=== PATIENT | male | born 1985 | race Caucasian/White ===

== ENCOUNTER 2021-08-11 15:26 | Inpatient (IN) | payer SELFPAY ==
[2021-08-11 15:41] VITALS: BP 123/74; PULSE 75; RESP 18; TEMP 36.9; O2SAT 96
--- NOTE | 2021-08-11 15:55 | ED.C_ITS ---
Documented by User: Jhonny Priest DO 08/19/21 17:43 HPI - Psych General: Chief Complaint: Psychiatric Symptoms Stated Complaint: SI X 6 DAYS Time Seen by Provider: 08/11/21 15:35 Source: patient Mode of arrival: ambulatory Limitations: no limitations History of Present Illness: 36-year-old male presents emergency room with chief complaint of suicidal ideation. Brought in by EMS patient states he has a new sound in the [place] he has not taken any of his medication for the last 2 weeks. He reports a history of bipolar disorder schizophrenia and multiple personality disorder evidently [place] from [place] states he had come here to join the fair. When staff went to change the patient out he became agitated and attempted to leave. Patient initially reported he had a noose hung out in the [place] he was going to kill himself he had not taken any of his medications for 2 weeks. When he realized that we were going to admit him to psychiatry rather than just replace his medications and let him go he stated he was no longer suicidal and wanted to leave immediately. MD complaint: suicidal ideation Onset (ago): unknown Duration: constant Relieving factors: none Exacerbating factors: none Context: not taking psychiatric medications Associated psychiatric symptoms: suicidal ideation, racing thoughts and delusions Treatments prior to arrival: none If self harm: admits thoughts of self harm and has plan Review of Systems Const: Denies: fever(s), chills, body aches, change in appetite, fatigue or malaise ENMT: Denies: throat pain, ear or mastoid pain, nasal discharge or nasal congestion Card: Denies: chest pain, edema, dyspnea on exertion or orthopnea Resp: Denies: dyspnea, productive cough or non-productive cough GI: Denies: abdominal pain, nausea, vomiting, hematemesis, coffee ground emesis, diarrhea, constipation, bloating, hematochezia or melena : Denies: flank pain, dysuria, urinary frequency or urinary urgency Skin/Breast: Denies: rash or pruritus PFS ED PFSH: Medical History Depression Schizophrenia Social History Smoking and tobacco status: current every day smoker Alcohol intake: unknown Physical Exam Const: GENERAL APPEARANCE: cooperative and comfortable ORIENTATION/CONSCIOUSNESS: Yes awake, Yes oriented to person, Yes oriented to place and Yes oriented to time HENMT: COMMON NORMALS: normocephalic, atraumatic and hearing grossly normal bilaterally HEAD & SCALP: normocephalic and atraumatic Neck/C-Spine: COMMON NORMALS: no JVD Resp: COMMON NORMALS: normal respiratory effort, No retractions, No use of accessory muscles and clear to auscultation bilaterally AUSCULTATION: clear to auscultation bilaterally Cardio: COMMON NORMALS: no JVD, regular rate, regular rhythm and No murmurs present (Cardio) RATE: regular rate RHYTHM: regular rhythm Extremity: COMMON NORMALS: normal to inspection, capillary refill normal, no clubbing, cyanosis or edema, no calf tenderness and no pedal edema Neuro: SENSORIUM/ORIENTATION: Yes oriented to person, Yes oriented to place and Yes oriented to time Skin: COMMON NORMALS: no rashes or lesions noted GENERAL SKIN EXAM: no rash es or lesions noted Course Vital Signs: Vital signs: Vital Signs Temperature 98.7 F 08/15/21 12:32 Pulse Rate 92 08/15/21 12:32 Respiratory Rate 18 08/15/21 12:32 Blood Pressure 105/71 08/15/21 12:32 Pulse Oximetry 97 08/15/21 12:32 [facility] - Psych Medical Decision Making Care signed out to Dr. Bennett at change of shift. See final notes for diagnosis and disposition. Medical Records I reviewed the patient's medical records. Lab Data I reviewed the patient's lab results. : 08/11/21 18:55 08/11/21 17:30 Laboratory Results WBC 7.1 10^3/uL (4.0-10.0) 08/11/21 18:55 Corrected WBC Cancelled 08/11/21 17:30 RBC 4.62 10^6/uL (4.1-5.3) 08/11/21 18:55 Hgb 13.7 g/dL (11.7-16.6) 08/11/21 18:55 Hct 40.7 % (42.0-52.0) L 08/11/21 18:55 MCV 88.1 fl (80-94) 08/11/21 18:55 MCH 29.7 pg (28.0-34.0) 08/11/21 18:55 MCHC 33.7 g/dL (30.0-36.0) 08/11/21 18:55 RDW 14.0 % (12.1-15.1) 08/11/21 18:55 Plt Count 224 10^3/cmm (130-400) 08/11/21 18:55 MPV 11.5 fL (7.4-10.4) H 08/11/21 18:55 Gran % Cancelled 08/11/21 17:30 Neut % (Auto) 51.5 % 08/11/21 18:55 Lymph % (Auto) 40.9 % 08/11/21 18:55 Dade % (Auto) 5.2 % 08/11/21 18:55 Eos % (Auto) 1.5 % 08/11/21 18:55 Baso % (Auto) 0.8 % 08/11/21 18:55 Neut # (Auto) 3.67 10^3/uL (1.8-7.7) 08/11/21 18:55 Lymph # (Auto) 2.9 10^3/uL (0.8-4.8) 08/11/21 18:55 Dade # (Auto) 0.4 10^3/uL (0.2-0.9) 08/11/21 18:55 Eos # (Auto) 0.1 10^3/uL (0.0-0.8) 08/11/21 18:55 Baso # (Auto) 0.1 10^3/uL (0.0-0.1) 08/11/21 18:55 Absolute Gran (auto) Cancelled 08/11/21 17:30 Nucleated RBC % (auto) 0 % 08/11/21 18:55 Nucleated RBCs # 0.0 /100WBC 08/11/21 18:55 Sodium 135 mmol/L (136-145) L 08/11/21 17:30 Potassium 4.0 mmol/L (3.5-5.1) 08/11/21 17:30 Chloride 100 mmol/L (98-107) 08/11/21 17:30 Carbon Dioxide 22 mmol/L (22-29) 08/11/21 17:30 Anion Gap 17.0 (5-19) 08/11/21 17:30 BUN 10 mg/dL (6-20) 08/11/21 17:30 Creatinine 0.7 mg/dL (0.7-1.2) 08/11/21 17:30 GFR Calculation 126.9 mL/min (90-130) 08/11/21 17:30 Glucose 84 mg/dL (65-115) 08/11/21 17:30 Calculated Osmolality 278 mOsm/kg (285-295) L 08/11/21 17:30 Calcium 9.3 mg/dL (8.5-10.5) 08/11/21 17:30 Total Bilirubin 0.2 mg/dL (0.15-1.2) 08/11/21 17:30 AST 13 U/L (0-40) 08/11/21 17:30 ALT 9 U/L (0-41) 08/11/21 17:30 Alkaline Phosphatase 92 IU/L (40-130) 08/11/21 17:30 Total Protein 7.0 g/dL (6.6-8.7) 08/11/21 17:30 Albumin 4.4 g/dL (3.5-5.2) 08/11/21 17:30 Globulin 2.6 g/dL (1.3-4.6) 08/11/21 17:30 Salicylates < 0.3 mg/dL (3-10) L 08/11/21 17:30 Urine Opiates Screen Negative ng/mL (Negative) 08/11/21 17:30 Acetaminophen < 5.0 ug/mL (10-30) L 08/11/21 17:30 Ur Barbiturates Screen Negative ng/mL (Negative) 08/11/21 17:30 Ur Phencyclidine Scrn Negative ng/mL (Negative) 08/11/21 17:30 Ur Amphetamines Screen Negative ng/mL (Negative) 08/11/21 17:30 U Benzodiazepines Scrn Negative ng/mL (Negative) 08/11/21 17:30 Urine Cocaine Screen Negative ng/mL (Negative) 08/11/21 17:30 U Marijuana (THC) Screen Positive ng/mL (Negative) H 08/11/21 17:30 Ethyl Alcohol < 10 mg/dL (0-10) 08/11/21 17:30 Coronavirus 229E (PCR) Not detected (NOT DETECT) 08/11/21 20:11 SARS-CoV-2 (PCR) Not detected (NOT DETECT) 08/11/21 20:11 Discharge Plan Discharge Patient Disposition: Admitted As Inpatient Admit Provider: Gavino Bob Clinical Impression: Suicidal ideation Condition: Stable Discharge Diet: Regular Discharge Activity: Resume usual activity Sign Out Sign Out Data: Patient Sign Out occurred on 08/11/21 at 18:17. Patient's care was discussed, and care was transferred from to Dylan Bennett MD. Coding Level of Care Code ED Soaking Pits Supervisor for Chg Fwd Exam Detailed Documented by User: Dylan Bennett MD 08/24/21 00:21 HPI - Psych General: Chief Complaint: Psychiatric Symptoms Stated Complaint: SI X 6 DAYS Time Seen by Provider: 08/11/21 15:35 PFSH ED PFSH: Medical History Depression Schizophrenia Social History Smoking and tobacco status: current every day smoker Alcohol intake: unknown Course Vital Signs: Vital signs: Vital Signs Temperature 98.7 F 08/15/21 12:32 Pulse Rate 92 08/15/21 12:32 Respiratory Rate 18 08/15/21 12:32 Blood Pressure 105/71 08/15/21 12:32 Pulse Oximetry 97 08/15/21 12:32 MDM - Psych Medical Decision Making Care signed out to Dr. Bennett at change of shift. See final notes for diagnosis and disposition. Care handoff received from Dr. Priest pending completion of medical clearance. Based on ED evaluation there is no obvious condition that would preclude the patient from inpatient management of psychiatric concerns. Discussed with Dr. Bob and patient accepted to neuropsych unit. Dylan Bennett MD Emergency Medicine Lab Data : 08/11/21 18:55 08/11/21 17:30 Laboratory Results WBC 7.1 10^3/uL (4.0-10.0) 08/11/21 18:55 Corrected WBC Cancelled 08/11/21 17:30 RBC 4.62 10^6/uL (4.1-5.3) 08/11/21 18:55 Hgb 13.7 g/dL (11.7-16.6) 08/11/21 18:55 Hct 40.7 % (42.0-52.0) L 08/11/21 18:55 MCV 88.1 fl (80-94) 08/11/21 18:55 MCH 29.7 pg (28.0-34.0) 08/11/21 18:55 MCHC 33.7 g/dL (30.0-36.0) 08/11/21 18:55 RDW 14.0 % (12.1-15.1) 08/11/21 18:55 Plt Count 224 10^3/cmm (130-400) 08/11/21 18:55 MPV 11.5 fL (7.4-10.4) H 08/11/21 18:55 Gran % Cancelled 08/11/21 17:30 Neut % (Auto) 51.5 % 08/11/21 18:55 Lymph % (Auto) 40.9 % 08/11/21 18:55 Dade % (Auto) 5.2 % 08/11/21 18:55 Eos % (Auto) 1.5 % 08/11/21 18:55 Baso % (Auto) 0.8 % 08/11/21 18:55 Neut # (Auto) 3.67 10^3/uL (1.8-7.7) 08/11/21 18:55 Lymph # (Auto) 2.9 10^3/uL (0.8-4.8) 08/11/21 18:55 Dade # (Auto) 0.4 10^3/uL (0.2-0.9) 08/11/21 18:55 Eos # (Auto) 0.1 10^3/uL (0.0-0.8) 08/11/21 18:55 Baso # (Auto) 0.1 10^3/uL (0.0-0.1) 08/11/21 18:55 Absolute Gran (auto) Cancelled 08/11/21 17:30 Nucleated RBC % (auto) 0 % 08/11/21 18:55 Nucleated RBCs # 0.0 /100WBC 08/11/21 18:55 Sodium 135 mmol/L (136-145) L 08/11/21 17:30 Potassium 4.0 mmol/L (3.5-5.1) 08/11/21 17:30 Chloride 100 mmol/L (98-107) 08/11/21 17:30 Carbon Dioxide 22 mmol/L (22-29) 08/11/21 17:30 Anion Gap 17.0 (5-19) 08/11/21 17:30 BUN 10 mg/dL (6-20) 08/11/21 17:30 Creatinine 0.7 mg/dL (0.7-1.2) 08/11/21 17:30 GFR Calculation 126.9 mL/min (90-130) 08/11/21 17:30 Glucose 84 mg/dL (65-115) 08/11/21 17:30 Calculated Osmolality 278 mOsm/kg (285-295) L 08/11/21 17:30 Calcium 9.3 mg/dL (8.5-10.5) 08/11/21 17:30 Total Bilirubin 0.2 mg/dL (0.15-1.2) 08/11/21 17:30 AST 13 U/L (0-40) 08/11/21 17:30 ALT 9 U/L (0-41) 08/11/21 17:30 Alkaline Phosphatase 92 IU/L (40-130) 08/11/21 17:30 Total Protein 7.0 g/dL (6.6-8.7) 08/11/21 17:30 Albumin 4.4 g/dL (3.5-5.2) 08/11/21 17:30 Globulin 2.6 g/dL (1.3-4.6) 08/11/21 17:30 Salicylates < 0.3 mg/dL (3-10) L 08/11/21 17:30 Urine Opiates Screen Negative ng/mL (Negative) 08/11/21 17:30 Acetaminophen < 5.0 ug/mL (10-30) L 08/11/21 17:30 Ur Barbiturates Screen Negative ng/mL (Negative) 08/11/21 17:30 Ur Phencyclidine Scrn Negative ng/mL (Negative) 08/11/21 17:30 Ur Amphetamines Screen Negative ng/mL (Negative) 08/11/21 17:30 U Benzodiazepines Scrn Negative ng/mL (Negative) 08/11/21 17:30 Urine Cocaine Screen Negative ng/mL (Negative) 08/11/21 17:30 U Marijuana (THC) Screen Positive ng/mL (Negative) H 08/11/21 17:30 Ethyl Alcohol < 10 mg/dL (0-10) 08/11/21 17:30 Coronavirus 229E (PCR) Not detected (NOT DETECT) 08/11/21 20:11 SARS-CoV-2 (PCR) Not detected (NOT DETECT) 08/11/21 20:11 Discharge Plan Discharge Patient Disposition: Admitted As Inpatient Admit Provider: Gavino Bob Clinical Impression: Suicidal ideation Condition: Stable Discharge Diet: Regular Discharge Activity: Resume usual activity Sign Out Sign Out Data: Patient Sign Out occurred on 08/11/21 at 18:17. Patient's care was discussed, and care was transferred from to Dylan Bennett MD. Coding Level of Care Code ED Soaking Pits Supervisor for Deep Fwd Exam Detailed
--- NOTE | 2021-08-11 16:24 | PC.PHAR ---
pt unable to tell me where he last filled medications at states he is from all over the place- pt states he has been in [facility], [facility] and other place in [place]-pt states he takes alot of different medications and not sure of all the names-pt states he takes Adderall 15mg,gabapetin 900mg tid,something for schizophrenia and voices and medications for seizures-no medications show on ext med history-pt states not taken meds for 2 weeks or so
[2021-08-11 18:04] LABS: Alanine Aminotransferase 9 U/L (0-41); Albumin Level 4.4 g/dL (3.5-5.2); Alkaline Phosphatase 92 IU/L (40-130); Blood Urea Nitrogen 10 mg/dL (6-20); Calcium 9.3 mg/dL (8.5-10.5); Carbon Dioxide 22 mmol/L (22-29); Chloride 100 mmol/L (98-107); Globulin 2.6 g/dL (1.3-4.6); Glomerular Filtration Rate 126.9 mL/min (90-130); Glucose 84 mg/dL (65-115); Osmolality Calculated 278 mOsm/kg (285-295); Sodium 135 mmol/L (136-145); Total Bilirubin 0.2 mg/dL (0.15-1.2)
[2021-08-11 18:06] LABS: Acetaminophen < 5.0 ug/mL (10-30); Alcohol Level < 10 mg/dL (0-10); Aspartate Amino Transferase 13 U/L (0-40); Salicylate < 0.3 mg/dL (3-10)
[2021-08-11] MEDS: LORazepam 2 mg Tablet PO ×2 (18:06→20:18)
[2021-08-11 18:09] LABS: Amphetamines Screen Urine Negative (Negative); Barbiturates Screen Urine Negative (Negative); Benzodiazepines Screen Urine Negative (Negative); Cocaine Screen Urine Negative (Negative); Opiate Screen Urine Negative (Negative); PCP Screen Urine Negative (Negative); THC Screen Urine Positive (Negative)
[2021-08-11 19:07] LABS: Basophils # 0.1 10^3/uL (0.0-0.1); Basophils % 0.8 %; Eosinophils # 0.1 10^3/uL (0.0-0.8); Eosinophils % 1.5 %; Hematocrit 40.7 % (42.0-52.0); Hemoglobin 13.7 g/dL (11.7-16.6); Lymphocytes # 2.9 10^3/uL (0.8-4.8); Lymphocytes % 40.9 %; Mean Corpuscular HGB Conc 33.7 g/dL (30.0-36.0); Mean Corpuscular Hemoglobin 29.7 pg (28.0-34.0); Mean Corpuscular Volume 88.1 fl (80-94); Mean Platelet Volume 11.5 fL (7.4-10.4); Monocytes # 0.4 10^3/uL (0.2-0.9); Monocytes % 5.2 %; Neutrophils # 3.67 10^3/uL (1.8-7.7); Neutrophils % 51.5 %; Nucleated Red Blood Cells % 0 %; Platelet Count 224 10^3/cmm (130-400); Red Blood Count 4.62 10^6/uL (4.1-5.3); White Blood Count 7.1 10^3/uL (4.0-10.0)
[2021-08-11 21:57] LABS: Adenovirus Not Detected (NOT DETECT); Chlamydia Pneumoniae Not Detected (NOT DETECT); Coronavirus 229E,HKU1,NL63,OC4 Not Detected (NOT DETECT); Human Metapneumovirus Not Detected (NOT DETECT); Human Rhinovirus/Enterovirus Not Detected (NOT DETECT); Influenza A Not Detected (NOT DETECT); Influenza A H1 Not Detected (NOT DETECT); Influenza A H1-2009 Not Detected (NOT DETECT); Influenza A H3 Not Detected (NOT DETECT); Influenza B Not Detected (NOT DETECT); Mycoplasma Pneumoniae Not Detected (NOT DETECT); Parainfluenza Virus Type 1 Not Detected (NOT DETECT); Parainfluenza Virus Type 2 Not Detected (NOT DETECT); Parainfluenza Virus Type 3 Not Detected (NOT DETECT); Parainfluenza Virus Type 4 Not Detected (NOT DETECT); Respiratory Syncytial Virus A Not Detected (NOT DETECT); Respiratory Syncytial Virus B Not Detected (NOT DETECT); SARS-COV-2 Not Detected (NOT DETECT)
[2021-08-12 00:11] VITALS: RESP 20
--- NOTE | 2021-08-12 00:11 | PC.NURSE ---
PATIENT UNCOOPERATIVE, AGITATED; REFUSED V/S OR PHYSICAL ASSESSMENT.
[2021-08-12 06:00] VITALS: BP 89/63; PULSE 85; RESP 17
--- NOTE | 2021-08-12 08:25 | PC.NURSE ---
SKIN ASSESSMENT COMPLETED AND PT DRESSED OUT OF PAPER SCRUBS. SKIN ASSESSMENT REVEALS MULTIPLE GENERALIZED TATOOS FROM FACE DOWN TO TOES. NO OPEN AREAS OBSERVED. PT VERY AGITATED, CUSSING AND UNCOOPERATIVE.
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
[2021-08-12] MEDS: nicotine 2 mg Gum BUCCAL (11:15)
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
[2021-08-12] MEDS: OLANZapine 10 mg ODT PO (11:53)
--- NOTE | 2021-08-12 11:55 | PC.NURSE ---
Addendum entered by Bel Archuleta RN 08/12/21 14:33: PT DID EVENTUALLY CALM AND LAY DOWN. PT CURRENTLY RESTING WITH EYES CLOSED. ZYDIS EFFECTIVE. Original Note: PRN MEDICATION PT INCREASINGLY AGITATED, REQUESTING ATIVAN. HITTING THE WALL WITH FISTS. STATES HE ALLERGIC TO EVERYTHING. INFORMED THIS RN COULD GIVE HIM ZYDIS, STATES, I NEED TWO OR THREE THEN. NOTIFIED DR. ARMENDARIZ NEW ORDERS RECEIVED FOR ZYDIS 10 MG PO TIMES ONE DOSE. ZYDIS ADMINISTERED ORDERED. PT WENT BACK TO ROOM.
--- NOTE | 2021-08-12 12:19 | PC.OT ---
OT EVALUATION ORDERS RECEIVED. PER OBSERVATION AND NURSING REPORT; PATIENT IS AGITATED AND NURSING REQUESTS HOLD ON OT EVALUATION TODAY. WILL ATTEMPT AGAIN TOMORROW.
[2021-08-12 14:00] VITALS: RESP 18
--- NOTE | 2021-08-12 15:15 | PC.NURSE ---
vitals Patient refused vitals.
[2021-08-12 19:55] VITALS: RESP 16
[2021-08-13 06:00] VITALS: BP 106/70; PULSE 74; RESP 17; TEMP 36.5; O2SAT 97
[2021-08-13] MEDS: nicotine 2 mg Gum BUCCAL ×4 (06:41→13:15)
--- NOTE | 2021-08-13 09:27 | PC.OT ---
Pts name stated 3x and no response given while sleeping. Will attempt OT evaluation at a later day
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
[2021-08-13] MEDS: gabapentin 300 mg Capsule 900 MG PO ×2 (13:14→20:28)
[2021-08-13] MEDS: OLANZapine 5 mg ODT PO (13:15)
[2021-08-13 14:00] VITALS: BP 115/62; PULSE 92; RESP 18; TEMP 36.9; O2SAT 97
--- NOTE | 2021-08-13 19:00 | PC.NURSE ---
pt had seizure like behaviors in [place], witnessed and assisted by fire boss, dr estrada notified, one on one with pt to monitor, pt has no injury, possible low gabapentin levels per dr estrada. pt is up walking halls with sitter and eating and drinking in dayroom
[2021-08-13] MEDS: cyclobenzaprine 10 mg Tablet PO (20:28)
[2021-08-13] MEDS: trazodone 50 mg Tablet PO (20:33)
--- NOTE | 2021-08-13 20:38 | PC.NURSE ---
PT WAS STABLE AND STATES HE FEELS BETTER. 1:1 SITTER WAS PULLED AT 2038. PT IS NOW IN HIS ROOM TAKING A SHOWER. PT VERBALIZED HE WOULD LET STAFF KNOW IF HE DID NOT FEEL WELL.
[2021-08-13 20:43] VITALS: BP 119/71; PULSE 86; RESP 18; TEMP 36.8; O2SAT 94
--- NOTE | 2021-08-14 | PC.NURSE ---
PT HAS BEEN CALM AND COOPERATIVE THIS SHIFT. UPON APPROACH BY THIS NURSE PT DENIES ANY SI/HI. DOES ENDORSE AVH. STATES HAS BEEN DEALING WITH CHRONIC AVH SINCE 5 YEARS OLD. HAD NO C/O VOICED AND HAS BEEN IN BED RESTING.
[2021-08-14] MEDS: ibuprofen 800 mg tablet PO ×2 (03:32→20:41)
[2021-08-14] MEDS: benzocaine 20% 7 gm 1 APPLIC MUCOUS MEM ×2 (03:34→20:40)
[2021-08-14 06:00] VITALS: BP 123/82; PULSE 110; RESP 18; TEMP 36.8; O2SAT 97
[2021-08-14] MEDS: acetaminophen 325 mg Tablet 650 MG PO (06:37)
[2021-08-14] MEDS: gabapentin 300 mg Capsule 900 MG PO ×3 (08:40→20:41)
[2021-08-14] MEDS: cyclobenzaprine 10 mg Tablet PO ×2 (08:40→18:23)
[2021-08-14] MEDS: nicotine 2 mg Gum BUCCAL ×2 (08:40→18:08)
[2021-08-14] MEDS: OLANZapine 10 mg ODT PO (11:17)
--- NOTE | 2021-08-14 11:37 | P.NPUPN_ITS ---
Subjective NPU Subjective: He continues to be very angry. He says he just wants back on his medication but he does not know what his medication is besides Adderall. He said his mother knows but we called her and she does not know. He took Zyprexa yesterday and eventually went to sleep. Now he says that the Zyprexa makes him want to fight. He is always wanting to fight. He just took some Zyprexa shortly before our visit. We will try to get him to take them more often. He denies any side effects from the gabapentin 900 mg 3 times daily. He says that he slept well last night. He is now denying suicidal ideation. He says that he just told them [place] because he wanted to come into the hospital to get back on his medications. Mental Status Exam MSE Comments: This is a 36-year-old appropriate weight male who appears approximately his stated age and is very angry and distressed. He is not cooperative with the evaluation and refused to answer most questions. He became very agitated with questions. He is adequately groomed in hospital scrubs. psychomotor activity is increased. Speech is at a regular rate and rhythm, normal volume, good articulation, not pressured. Alert, oriented X3 Attention and concentration appears to be normal. Memory is intact Mood is angry. Affect is very irritable. Thought process is logical and goal-directed. Thought content: Admits to auditory hallucinations but would not say what they say. He appears to have significant delusions and paranoia. He said that he thinks that that patient phone is tapped by the FBI. He denies homicidal ideation. Fund of knowledge is probably average. Insight and judgment appear to be limited. Impulse control is limited. Cognition: Patient Appearance: Appropriate Level of Consciousness: Awake and Alert Patient Cognition Impaired: No Ability to Follow Directions: Poor Patient Orientation (long list): Person, Place, Time and Name Comprehension Ability: Mild Impairment Hallucination Type: None Thought Process: Appropriate Affect: Affect Description: Calm Behavior: Patient Behavior: Appropriate Speech Pattern: Clear, Animated, Inappropriate and Includes Profanity Vitals/I&O/Wt Last Vital Signs Temp 98.3 F 08/14/21 06:00 Pulse 110 H 08/14/21 06:00 Resp 18 08/14/21 06:00 BP 123/82 08/14/21 06:00 Pulse Ox 97 08/14/21 06:00 Data NPU : 08/11/21 18:55 08/11/21 17:30 A&P Assessment and plan (1) Suicidal ideation: Status: Acute (2) Bipolar 1 disorder: Status: Acute (3) History of antisocial personality disorder: Status: Acute Plan This is a 36-year-old male who reports 2977 psychiatric admissions who presents with suicidal ideation saying he has been off of his medications for 2 weeks. Plan: 1. We will restart medications when he can tell us what he takes. We will start gabapentin 900 mg 3 times per day at his request. Will encouraged to take Zyprexa Zydis as needed 2. Continue every 15 minute checks for safety. 3. Encourage individual, group and milieu therapies. 4. Encourage sober living treatment after discharge at the highest level of care to which he is willing to commit. 5. We will monitor for safety for himself in the community prior to discharge. Involuntary Hold Information 96 Hour Hold: 96 Hour Involuntary Admission: Yes 96 Hour Hold Ending Date: 08/18/21 96 Hour Hold Ending Time: 00:10 Attestations NPU Medical Necessity Statement*: Inpatient hospitalization is medically necessary and the clinically appropriate intervention at this time. We will initiate medications and make changes as indicated. 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
[2021-08-14 14:00] VITALS: BP 115/81; PULSE 76; RESP 18; O2SAT 99
[2021-08-14 20:05] VITALS: BP 111/76; PULSE 104; RESP 16; O2SAT 97
[2021-08-15 06:00] VITALS: BP 105/71; PULSE 92; RESP 18; O2SAT 97
[2021-08-15] MEDS: gabapentin 300 mg Capsule 900 MG PO (08:46)
[2021-08-15] MEDS: cyclobenzaprine 10 mg Tablet PO (08:46)
--- NOTE | 2021-08-15 09:45 | PC.NURSE ---
DENIES SI/HI AND VH AT THIS TIME. REPORTS HE HAS HEARD VOICES SINCE I WAS SIX STATES, I NEED THAT TO PUT ME BACK ON MY ADDERALL. I TAKE 15 MG BUT I'M WILLING TO GO DOWN TO 5 MG. I'M WILLING TO WORK WITH EVERYONE. YOU ALL NEED TO WORK WITH ME. INFORMED PT I WOULD LET DR. NIÑO KNOW HIS REQUEST. PT CONTINUES TO STOMP AROUND UNIT, STATING MY MIND IS RACING, I CAN'T CONTROL IT, TELL HIM I NEED MY ADDERALL. PT ABLE TO BE VERBALLY REDIRECTED.
--- NOTE | 2021-08-15 10:48 | PC.NURSE ---
ON PATIO WITH STAFF AND PEERS. CONTINUES TO BE NEGATIVE, DEMANDING AND MAKING INSULTS AGAINST THE STAFF AND VERBALLY REDIRECTED MULTIPLE TIMES. PT STATES, YOU'RE GOING TO HAVE TO LOCK ME DOWN IN RESTRAINTS IF THAT DOESN'T LET ME OUT OF HERE OR GIVE ME MY ADDERAL I'M GOING TO FLIP OR HIT THAT FUCKING DRTrish PT VERBALLY REDIRECTED AND EDUCATED NO HIT STAFF OR
[2021-08-15] MEDS: nicotine 2 mg Gum BUCCAL (11:04)
[2021-08-15] MEDS: ibuprofen 800 mg tablet PO (12:24)
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
[2021-08-15 12:32] VITALS: BP 105/71; PULSE 92; RESP 18; TEMP 37.1; O2SAT 97
== END 2021-08-15 13:27 | disposition home or self-care (01) | DRG 885 ==
LOC: ER 22:28 → NP 23:15
PROVIDERS: Family Medicine; Physician Assistant; Admitting Provider Psychiatry & Neurology Psychiatry; Emergency Provider Emergency Medicine; Visit Provider Psychiatry & Neurology Psychiatry
DX: F25.0 Schizoaffective disorder, bipolar type (principal); R45.851 Suicidal ideations; J45.909 Unspecified asthma, uncomplicated; F12.90 Cannabis use, unspecified, uncomplicated; F60.2 Antisocial personality disorder
CPT/HCPCS: 80053; 80306; 80307; 85025; 87635; 97150; 97165; 99285

== ENCOUNTER 2021-08-15 23:13 | Emergency (ER) | payer SELFPAY ==
[2021-08-15 23:15] VITALS: BP 131/70; PULSE 88; RESP 18; TEMP 36.6; O2SAT 92; BMI 23.5
--- NOTE | 2021-08-15 23:17 | W.ED.LOWEXIN ---
HPI - Extremity Injury (Lower) General: Chief Complaint: Extremity Injury, Lower Stated Complaint: ANKLE PAIN Time Seen by Provider: 08/15/21 23:17 History of Present Illness: 36-year-old male patient comes in today for injury to the left ankle. Patient reports he was getting out of the shower this evening when he slipped twisting his left ankle. Patient reports he felt a pop in his ankle. Since then he has had discomfort and pain with ambulation on the ankle. Patient appears in mild to moderate pain at rest. Patient is very tender to touch on the ankle. Patient appears nontoxic. Review of Systems Const: Denies: fever(s) ENMT: Denies: throat pain Card: Denies: chest pain Resp: Denies: dyspnea GI: Denies: nausea or vomiting Musc: Reports: joint pain (Left ankle) [facility] PFSH: Medical History (Updated 08/16/21 @ 00:01 by ) Depression Schizophrenia Physical Exam Const: COMMON NORMALS: alert HENMT: HEAD & SCALP: normal to inspection Neck/C-Spine: COMMON NORMALS: full ROM Resp: COMMON NORMALS: normal respiratory effort Cardio: COMMON NORMALS: regular rate and Peripheral pulses 2+ throughout RATE: regular rate PERIPHERAL PULSES: Peripheral pulses 2+ throughout GI: COMMON NORMALS: non-tender Extremity: LEFT LOWER EXTREMITY: Yes ankle joint (Mild posterior swelling of the left ankle, tender to touch) Left ankle: Yes inspection, Yes palpation, Yes ROM and Yes neurovascular exam Neuro: SENSORIUM/ORIENTATION: Yes alert Skin: COMMON NORMALS: no rashes or lesions noted GENERAL SKIN EXAM: no rashes or lesions noted Course Vital Signs: Vital signs: Vital Signs Temperature 97.8 F 08/15/21 23:15 Pulse Rate 85 08/16/21 00:00 Respiratory Rate 16 08/16/21 00:00 Blood Pressure 129/90 08/16/21 00:00 Pulse Oximetry 96 08/16/21 00:00 MDM - Extremity Injury (Lower) Medical Decision Making 36-year-old male patient comes in for evaluation of left ankle injury. On exam patient has some posterior lateral tenderness of the left ankle. Distal pulses and sensation are intact. Patient appears well. Patient appears in moderate pain. Vital signs are normal. Differential diagnosis includes fracture, sprain, dislocation. X-ray shows no abnormality. Reviewed exam with patient with recommendations for treatment and follow-up. Patient reported understanding agreed to plan. Lab Data Radiology Impressions Ankle X-Ray 08/15/21 23:22 IMPRESSION: No acute findings. Discharge Plan Discharge Patient Disposition: Home Clinical Impression: Ankle sprain Qualifiers: Encounter type: initial encounter Involved ligament of ankle: unspecified ligament Laterality: left Qualified Code(s): S93.402A - Sprain of unspecified ligament of left ankle, initial encounter Condition: Stable Prescriptions: New ibuprofen 600 mg tablet 600 mg PO Q6H PRN (Reason: pain) Qty: 30 0RF No Action cyclobenzaprine 10 mg Tablet 10 mg PO TID PRN (Reason: Muscle Spasms) 30 Days Qty: 60 1RF gabapentin 300 mg Capsule 900 mg PO TID 30 Days Qty: 270 1RF Discharge Orders: Discharge ED (Routine); Ordered 08/15/21 Ordered By: Zhang Fofana Discharge Diet: Usual diet Discharge Activity: Increase activity as tolerated Patient Instructions: Ankle Sprain (ED) Activity Restrictions/Additional Instructions: Activity as tolerated. Charles wrap for comfort and swelling. Use acetaminophen and ibuprofen for pain. Use ice packs for further relief. Use crutches until he can bear weight comfortably on the ankle. Follow-up with primary care in 2 to 3 days for recheck. Return to ER for new concerns. Coding Level of Care Code ED Internet Consultant for [employer] Exam Comprehensive
[2021-08-15 23:19] VITALS: BP 131/70; PULSE 86; PULSE 90; RESP 16; O2SAT 95
--- NOTE | 2021-08-15 23:22 | XRR_ITS ---
PROCEDURE INFORMATION: Exam: XR Left Ankle Exam date and time: 08/15/2021 11:24 PM Age: 36 years old Clinical indication: Injury or trauma; Blunt trauma; Ankle; Left; Injury details: Fall in shower TECHNIQUE: Imaging protocol: XR Left ankle. Views: 3 or more views. COMPARISON: No relevant prior studies available. FINDINGS: Bones/joints: Normal. Soft tissues: Normal. XR/XR ankle LT min 3V* [id number] IMPRESSION: No acute findings.
[2021-08-15] MEDS: acetaminophen 500 mg Tablet PO (23:30)
[2021-08-15] MEDS: ibuprofen 600 mg Tablet PO (23:30)
[2021-08-16] VITALS: BP 129/90; PULSE 85; RESP 16; O2SAT 96
[2021-08-16 00:18] VITALS: BP 129/90; PULSE 85; RESP 16; O2SAT 96
== END 2021-08-16 00:15 | disposition home or self-care (01) ==
PROVIDERS: Emergency Provider Nurse Practitioner Family
DX: S93.409A Sprain of unspecified ligament of unspecified ankle, initial encounter (principal); W18.49XA Other slipping, tripping and stumbling without falling, initial encounter; Y93.E1 Activity, personal bathing and showering
CPT/HCPCS: 73610; 99283

== ENCOUNTER 2021-08-21 19:13 | Emergency (ER) | payer SELFPAY ==
[2021-08-21 19:41] VITALS: BP 118/71; PULSE 101; RESP 18; TEMP 36.9; O2SAT 96; BMI 28.1
--- NOTE | 2021-08-21 19:48 | XRR_ITS ---
PROCEDURE INFORMATION: Exam: XR Chest Exam date and time: 08/21/2021 7:58 PM Age: 36 years old Clinical indication: Other: Seizure; Additional info: Walter TECHNIQUE: Imaging protocol: Radiologic exam of the chest. Views: 1 view. COMPARISON: No relevant prior studies available. FINDINGS: Lungs: Unremarkable. No consolidation. Pleural spaces: Unremarkable. No pleural effusion. No pneumothorax. Heart/Mediastinum: Unremarkable. No cardiomegaly. Bones/joints: Unremarkable. XR/XR chest 1V portable [id number] IMPRESSION: No acute findings.
[2021-08-21 20:13] LABS: Basophils # 0.1 10^3/uL (0.0-0.1); Basophils % 0.9 %; Eosinophils # 0.2 10^3/uL (0.0-0.8); Eosinophils % 2.3 %; Hematocrit 37.4 % (42.0-52.0); Hemoglobin 12.2 g/dL (11.7-16.6); Lymphocytes # 2.9 10^3/uL (0.8-4.8); Lymphocytes % 39.1 %; Mean Corpuscular HGB Conc 32.6 g/dL (30.0-36.0); Mean Corpuscular Hemoglobin 29.5 pg (28.0-34.0); Mean Corpuscular Volume 90.3 fl (80-94); Mean Platelet Volume 10.8 fL (7.4-10.4); Monocytes # 0.5 10^3/uL (0.2-0.9); Monocytes % 6.8 %; Neutrophils # 3.79 10^3/uL (1.8-7.7); Neutrophils % 50.6 %; Nucleated Red Blood Cells % 0 %; Platelet Count 217 10^3/cmm (130-400); Red Blood Count 4.14 10^6/uL (4.1-5.3); Red Cell Distribution Width 14.2 % (12.1-15.1); White Blood Count 7.5 10^3/uL (4.0-10.0)
[2021-08-21 20:23] LABS: Bilirubin Urine Neg (Negative); Blood Urine Neg (Negative); Glucose Urine UA Norm (Normal); Ketones Urine Negative (Negative); Leukocyte Esterase Urine Negative (Negative); Nitrate Urine Negative (Negative); Protein Urine 1+ (Negative); Urine Appearance Clear (CLEAR); Urine Color Yellow (Yellow); Urobilinogen Urine Norm (Negative); pH Urine 5 (5-7)
[2021-08-21 20:24] LABS: Add Urine Microscopic? YES
[2021-08-21 20:26] LABS: Bacteria Urine TRACE /hpf; Mucus Urine 2+ /hpf; RBC Urine 0-4 /hpf (0-2); Squamous Epithelial Cell Urine 0-4 /hpf (0-5)
[2021-08-21 20:27] LABS: Add Urine Culture? No; Amphetamines Screen Urine Negative (Negative); Barbiturates Screen Urine Negative (Negative); Benzodiazepines Screen Urine Negative (Negative); Cocaine Screen Urine Negative (Negative); Opiate Screen Urine Negative (Negative); PCP Screen Urine Negative (Negative); THC Screen Urine Positive (Negative); Transitional Epi Cells Urine 0-4 /hpf
--- NOTE | 2021-08-21 20:27 | PC.NURSE ---
upon going into room to hang IV fluids patinet became irrate and cussing at staff. patient attempted redirection unsuccessful. patient asked to be dismissed. Dr. Perez notified and patients AMA form explain and signed per patient. patients IV removed intact with no complciations. Patinet AOx4 upon discharge. Patient walked to front lobby with no difficutlies. Patinet in no obvious distress upon leaving ER.
[2021-08-21 20:30] LABS: Alanine Aminotransferase 8 U/L (0-41); Albumin Level 3.8 g/dL (3.5-5.2); Alkaline Phosphatase 78 IU/L (40-130); Aspartate Amino Transferase 12 U/L (0-40); Blood Urea Nitrogen 14 mg/dL (6-20); Calcium 8.6 mg/dL (8.5-10.5); Carbon Dioxide 22 mmol/L (22-29); Chloride 104 mmol/L (98-107); Globulin 2.6 g/dL (1.3-4.6); Glomerular Filtration Rate 75.3 mL/min (90-130); Glucose 108 mg/dL (65-115); Osmolality Calculated 289 mOsm/kg (285-295); Phosphorus 3.9 mg/dL (2.5-4.5); Sodium 139 mmol/L (136-145); Total Bilirubin 0.2 mg/dL (0.15-1.2); Total Protein 6.4 g/dL (6.6-8.7)
[2021-08-21 20:32] LABS: Alcohol Level < 10 mg/dL (0-10)
== END 2021-08-21 20:30 | disposition left against medical advice (07) ==
PROVIDERS: Emergency Medicine; Emergency Provider Family Medicine
DX: Z53.39 Other specified procedure converted to open procedure (principal); R56.9 Unspecified convulsions
CPT/HCPCS: 71045; 80053; 80306; 80307; 81001; 83735; 84100; 85025; 86140; 99283

== ENCOUNTER 2021-08-23 23:24 | Inpatient (IN) | payer SELFPAY ==
[2021-08-23 23:28] VITALS: BP 124/78; PULSE 91; RESP 18; TEMP 36.6; O2SAT 97; BMI 27.3
--- NOTE | 2021-08-23 23:35 | ED.C_ITS ---
Documented by User: JAYASHREE Marie 08/24/21 00:02 HPI - Psych General: Chief Complaint: Psychiatric Symptoms Stated Complaint: SI Time Seen by Provider: 08/23/21 23:25 Source: patient and EMS Mode of arrival: EMS Limitations: no limitations History of Present Illness: Patient is a 36-year-old male who presents to ED today with complaint of depression and suicidal ideations. Patient tells me he suffers from chronic depression. He states over the past few weeks he has had thoughts of suicide stating he has a plan to hang himself. He also mentions if I really wanted to do it, I would just slit my jugular . Patient denies previous suicide attempts. Part for marijuana use he denies drug or alcohol use. Patient was recently seen at [facility] from 08/11-08/15. Patient is admittedly homeless. He has previous psychiatric diagnoses of bipolar 1 disorder, antisocial personality disorder, multiple personality disorder, schizophrenia, and depression. MD complaint: suicidal ideation and feels depressed Onset (ago): week(s) Duration: constant History of same: Yes Associated psychiatric symptoms: depression and suicidal ideation Associated symptoms: Reports depression and suicidal ideation; Deny auditory hallucinations, visual hallucinations or homicidal ideation Treatments prior to arrival: none If self harm: admits thoughts of self harm and has plan Review of Systems Const: Denies: fever(s) or chills Card: Denies: chest pain, palpitations, lightheadedness or syncope Resp: Denies: dyspnea GI: Denies: abdominal pain, nausea, vomiting or diarrhea Skin/Breast: Denies: rash Neuro: Denies: headache(s) Psych: Reports: depression, hopelessness and suicidal ideation; Denies: paranoia, visual hallucinations, auditory hallucinations or homicidal ideation [facility] ED PFSH: Medical History Depression Schizophrenia Social History Smoking and tobacco status: current every day smoker Alcohol intake: unknown Physical Exam Const: COMMON NORMALS: no acute distress, patient oriented x3, no limitations and alert GENERAL APPEARANCE: cooperative and disheveled ORIENTATION/CONSCIOUSNESS: Yes awake, Yes oriented to person, Yes oriented to place and Yes oriented to time HENMT: COMMON NORMALS: normocephalic and atraumatic HEAD & SCALP: normal to inspection, normocephalic and atraumatic Resp: COMMON NORMALS: normal respiratory effort and clear to auscultation bilaterally AUSCULTATION: clear to auscultation bilaterally Cardio: COMMON NORMALS: regular rate and regular rhythm RATE: regular rate RHYTHM: regular rhythm Neuro: PATRICIA COMA SCALE: document GCS findings Linwood coma scale eye opening: Spontaneous Patricia coma scale verbal response: Orientated Linwood coma scale motor response: Obey commands Linwood coma scale total score: 15 COMMON NORMALS: patient oriented x3, moves all extremities, no focal motor deficits, no sensory deficits noted and gait normal SENSORIUM/ORIENTATION: Yes alert, Yes oriented to person, Yes oriented to place and Yes oriented to time Psych: COMMON NORMALS: mental status grossly normal, Normal thought process present, cooperative, normal affect, speech normal, activity/motor behavior normal, denies hallucinations and denies homicidal ideation ATTITUDE: Yes calm ACTIVITY/MOTOR BEHAVIOR: Yes appropriate eye contact SPEECH: Yes normal speech MOOD & AFFECT: Yes euthymic mood THOUGHT PROCESS: Normal thought process present THOUGHT CONTENT: Yes Normal thought content present ATTENTION/CONCENTRATION: Yes attention grossly intact and Yes concentration grossly intact MEMORY/COGNITION: Yes memory grossly intact and Yes cognition grossly intact INSIGHT: Fair insight present (Psych) JUDGEMENT: Fair judgement present (Psych) Course Consultations: Consultation #1: Dr. Blount-accepts to [facility] Vital Signs: Vital signs: Vital Signs Temperature 98.3 F 08/24/21 02:56 Pulse Rate 85 08/24/21 02:56 Respiratory Rate 18 08/24/21 02:56 Blood Pressure 107/77 08/24/21 02:56 Pulse Oximetry 99 08/24/21 02:56 [facility] - Psych Medical Decision Making Patient will be voluntary with affidavit to [facility] to Dr. Blount. Lab Data : 08/23/21 23:48 08/23/21 23:48 Laboratory Results WBC 11.3 10^3/uL (4.0-10.0) H 08/23/21 23:48 RBC 4.68 10^6/uL (4.1-5.3) 08/23/21 23:48 Hgb 13.7 g/dL (11.7-16.6) 08/23/21 23:48 Hct 41.9 % (42.0-52.0) L 08/23/21 23:48 MCV 89.5 fl (80-94) 08/23/21 23:48 MCH 29.3 pg (28.0-34.0) 08/23/21 23:48 MCHC 32.7 g/dL (30.0-36.0) 08/23/21 23:48 RDW 14.1 % (12.1-15.1) 08/23/21 23:48 Plt Count 271 10^3/cmm (130-400) 08/23/21 23:48 MPV 10.3 fL (7.4-10.4) 08/23/21 23:48 Neut % (Auto) 64.5 % 08/23/21 23:48 Lymph % (Auto) 25.5 % 08/23/21 23:48 Smyth % (Auto) 8.3 % 08/23/21 23:48 Eos % (Auto) 0.9 % 08/23/21 23:48 Baso % (Auto) 0.6 % 08/23/21 23:48 Neut # (Auto) 7.28 10^3/uL (1.8-7.7) 08/23/21 23:48 Lymph # (Auto) 2.9 10^3/uL (0.8-4.8) 08/23/21 23:48 Smyth # (Auto) 0.9 10^3/uL (0.2-0.9) 08/23/21 23:48 Eos # (Auto) 0.1 10^3/uL (0.0-0.8) 08/23/21 23:48 Baso # (Auto) 0.1 10^3/uL (0.0-0.1) 08/23/21 23:48 Nucleated RBC % (auto) 0 % 08/23/21 23:48 Nucleated RBCs # 0.0 /100WBC 08/23/21 23:48 Sodium 137 mmol/L (136-145) 08/23/21 23:48 Potassium 3.7 mmol/L (3.5-5.1) 08/23/21 23:48 Chloride 101 mmol/L (98-107) 08/23/21 23:48 Carbon Dioxide 24 mmol/L (22-29) 08/23/21 23:48 Anion Gap 15.7 (5-19) 08/23/21 23:48 BUN 20 mg/dL (6-20) 08/23/21 23:48 Creatinine 0.8 mg/dL (0.7-1.2) 08/23/21 23:48 GFR Calculation 108.8 mL/min (90-130) 08/23/21 23:48 Glucose 77 mg/dL (65-115) 08/23/21 23:48 Calculated Osmolality 285 mOsm/kg (285-295) 08/23/21 23:48 Calcium 9.7 mg/dL (8.5-10.5) 08/23/21 23:48 Total Bilirubin 0.3 mg/dL (0.15-1.2) 08/23/21 23:48 AST 18 U/L (0-40) 08/23/21 23:48 ALT 10 U/L (0-41) 08/23/21 23:48 Alkaline Phosphatase 96 IU/L (40-130) 08/23/21 23:48 Total Protein 7.9 g/dL (6.6-8.7) 08/23/21 23:48 Albumin 4.8 g/dL (3.5-5.2) 08/23/21 23:48 Globulin 3.1 g/dL (1.3-4.6) 08/23/21 23:48 Salicylates < 0.3 mg/dL (3-10) L 08/23/21 23:48 Urine Opiates Screen Positive ng/mL (Negative) H 08/23/21 23:40 Acetaminophen < 5.0 ug/mL (10-30) L 08/23/21 23:48 Ur Barbiturates Screen Negative ng/mL (Negative) 08/23/21 23:40 Ur Phencyclidine Scrn Negative ng/mL (Negative) 08/23/21 23:40 Ur Amphetamines Screen Positive ng/mL (Negative) H 08/23/21 23:40 U Benzodiazepines Scrn Negative ng/mL (Negative) 08/23/21 23:40 Urine Cocaine Screen Negative ng/mL (Negative) 08/23/21 23:40 U Marijuana (THC) Screen Positive ng/mL (Negative) H 08/23/21 23:40 Ethyl Alcohol < 10 mg/dL (0-10) 08/23/21 23:48 Discharge Plan Discharge Patient Disposition: Admitted As Inpatient Admit Provider: Shemar Blount Clinical Impression: Depression, Suicidal ideation Condition: Stable Coding Level of Care Code ED Dish Machine Operator for Chg Fwd Exam Detailed Documented by User: Regino Perez DO 08/24/21 05:33 HPI - Psych General: Chief Complaint: Psychiatric Symptoms Stated Complaint: SI Time Seen by Provider: 08/23/21 23:25 PFSH ED PFSH: Medical History Depression Schizophrenia Social History Smoking and tobacco status: current every day smoker Alcohol intake: unknown Physical Exam Neuro: PATRICIA COMA SCALE: document GCS findings Linwood coma scale total score: 15 Course Vital Signs: Vital signs: Vital Signs Temperature 98.3 F 08/24/21 02:56 Pulse Rate 85 08/24/21 02:56 Respiratory Rate 18 08/24/21 02:56 Blood Pressure 107/77 08/24/21 02:56 Pulse Oximetry 99 08/24/21 02:56 MDM - Psych Medical Decision Making Patient will be voluntary with affidavit to [facility] to Dr. Blount. This patient was originally seen by Mrs. Pena?LAKEISHA Temple.? I agree with her history, evaluation, and treatment. Lab Data : 08/23/21 23:48 08/23/21 23:48 Laboratory Results WBC 11.3 10^3/uL (4.0-10.0) H 08/23/21 23:48 RBC 4.68 10^6/uL (4.1-5.3) 08/23/21 23:48 Hgb 13.7 g/dL (11.7-16.6) 08/23/21 23:48 Hct 41.9 % (42.0-52.0) L 08/23/21 23:48 MCV 89.5 fl (80-94) 08/23/21 23:48 MCH 29.3 pg (28.0-34.0) 08/23/21 23:48 MCHC 32.7 g/dL (30.0-36.0) 08/23/21 23:48 RDW 14.1 % (12.1-15.1) 08/23/21 23:48 Plt Count 271 10^3/cmm (130-400) 08/23/21 23:48 MPV 10.3 fL (7.4-10.4) 08/23/21 23:48 Neut % (Auto) 64.5 % 08/23/21 23:48 Lymph % (Auto) 25.5 % 08/23/21 23:48 Smyth % (Auto) 8.3 % 08/23/21 23:48 Eos % (Auto) 0.9 % 08/23/21 23:48 Baso % (Auto) 0.6 % 08/23/21 23:48 Neut # (Auto) 7.28 10^3/uL (1.8-7.7) 08/23/21 23:48 Lymph # (Auto) 2.9 10^3/uL (0.8-4.8) 08/23/21 23:48 Smyth # (Auto) 0.9 10^3/uL (0.2-0.9) 08/23/21 23:48 Eos # (Auto) 0.1 10^3/uL (0.0-0.8) 08/23/21 23:48 Baso # (Auto) 0.1 10^3/uL (0.0-0.1) 08/23/21 23:48 Nucleated RBC % (auto) 0 % 08/23/21 23:48 Nucleated RBCs # 0.0 /100WBC 08/23/21 23:48 Sodium 137 mmol/L (136-145) 08/23/21 23:48 Potassium 3.7 mmol/L (3.5-5.1) 08/23/21 23:48 Chloride 101 mmol/L (98-107) 08/23/21 23:48 Carbon Dioxide 24 mmol/L (22-29) 08/23/21 23:48 Anion Gap 15.7 (5-19) 08/23/21 23:48 BUN 20 mg/dL (6-20) 08/23/21 23:48 Creatinine 0.8 mg/dL (0.7-1.2) 08/23/21 23:48 GFR Calculation 108.8 mL/min (90-130) 08/23/21 23:48 Glucose 77 mg/dL (65-115) 08/23/21 23:48 Calculated Osmolality 285 mOsm/kg (285-295) 08/23/21 23:48 Calcium 9.7 mg/dL (8.5-10.5) 08/23/21 23:48 Total Bilirubin 0.3 mg/dL (0.15-1.2) 08/23/21 23:48 AST 18 U/L (0-40) 08/23/21 23:48 ALT 10 U/L (0-41) 08/23/21 23:48 Alkaline Phosphatase 96 IU/L (40-130) 08/23/21 23:48 Total Protein 7.9 g/dL (6.6-8.7) 08/23/21 23:48 Albumin 4.8 g/dL (3.5-5.2) 08/23/21 23:48 Globulin 3.1 g/dL (1.3-4.6) 08/23/21 23:48 Salicylates < 0.3 mg/dL (3-10) L 08/23/21 23:48 Urine Opiates Screen Positive ng/mL (Negative) H 08/23/21 23:40 Acetaminophen < 5.0 ug/mL (10-30) L 08/23/21 23:48 Ur Barbiturates Screen Negative ng/mL (Negative) 08/23/21 23:40 Ur Phencyclidine Scrn Negative ng/mL (Negative) 08/23/21 23:40 Ur Amphetamines Screen Positive ng/mL (Negative) H 08/23/21 23:40 U Benzodiazepines Scrn Negative ng/mL (Negative) 08/23/21 23:40 Urine Cocaine Screen Negative ng/mL (Negative) 08/23/21 23:40 U Marijuana (THC) Screen Positive ng/mL (Negative) H 08/23/21 23:40 Ethyl Alcohol < 10 mg/dL (0-10) 08/23/21 23:48 Discharge Plan Discharge Patient Disposition: Admitted As Inpatient Admit Provider: Shemar Blount Clinical Impression: Depression, Suicidal ideation Condition: Stable Coding Level of Care Code ED Dish Machine Operator for Deep Fwd Exam Detailed
[2021-08-23 23:54] LABS: Basophils # 0.1 10^3/uL (0.0-0.1); Basophils % 0.6 %; Eosinophils # 0.1 10^3/uL (0.0-0.8); Eosinophils % 0.9 %; Hematocrit 41.9 % (42.0-52.0); Hemoglobin 13.7 g/dL (11.7-16.6); Lymphocytes # 2.9 10^3/uL (0.8-4.8); Lymphocytes % 25.5 %; Mean Corpuscular HGB Conc 32.7 g/dL (30.0-36.0); Mean Corpuscular Hemoglobin 29.3 pg (28.0-34.0); Mean Corpuscular Volume 89.5 fl (80-94); Mean Platelet Volume 10.3 fL (7.4-10.4); Monocytes # 0.9 10^3/uL (0.2-0.9); Monocytes % 8.3 %; Neutrophils # 7.28 10^3/uL (1.8-7.7); Neutrophils % 64.5 %; Nucleated Red Blood Cells % 0 %; Platelet Count 271 10^3/cmm (130-400); Red Blood Count 4.68 10^6/uL (4.1-5.3); Red Cell Distribution Width 14.1 % (12.1-15.1); White Blood Count 11.3 10^3/uL (4.0-10.0)
[2021-08-24 00:11] LABS: Alanine Aminotransferase 10 U/L (0-41); Albumin Level 4.8 g/dL (3.5-5.2); Alkaline Phosphatase 96 IU/L (40-130); Anion Gap 15.7 (5-19); Aspartate Amino Transferase 18 U/L (0-40); Blood Urea Nitrogen 20 mg/dL (6-20); Calcium 9.7 mg/dL (8.5-10.5); Carbon Dioxide 24 mmol/L (22-29); Chloride 101 mmol/L (98-107); Globulin 3.1 g/dL (1.3-4.6); Glomerular Filtration Rate 108.8 mL/min (90-130); Glucose 77 mg/dL (65-115); Osmolality Calculated 285 mOsm/kg (285-295); Potassium 3.7 mmol/L (3.5-5.1); Sodium 137 mmol/L (136-145); Total Bilirubin 0.3 mg/dL (0.15-1.2); Total Protein 7.9 g/dL (6.6-8.7)
[2021-08-24 00:12] LABS: Acetaminophen < 5.0 ug/mL (10-30); Alcohol Level < 10 mg/dL (0-10); Salicylate < 0.3 mg/dL (3-10)
[2021-08-24 01:13] LABS: Amphetamines Screen Urine Positive (Negative); Barbiturates Screen Urine Negative (Negative); Benzodiazepines Screen Urine Negative (Negative); Cocaine Screen Urine Negative (Negative); Opiate Screen Urine Positive (Negative); PCP Screen Urine Negative (Negative); THC Screen Urine Positive (Negative)
[2021-08-24 02:56] VITALS: BP 107/77; PULSE 85; RESP 18; TEMP 36.8; O2SAT 99
[2021-08-24] MEDS: trazodone 50 mg Tablet PO (03:27)
--- NOTE | 2021-08-24 04:27 | PC.ADMIT ---
Admission Note: Patient is a 36-year-old male who presents to ED today with complaint of depression and suicidal ideations. Patient tells me he suffers from chronic depression. He states over the past few weeks he has had thoughts of suicide stating he has a plan to hang himself. He also mentions if I really wanted to do it, I would just slit my jugular . Patient denies previous suicide attempts. Part for marijuana use he denies drug or alcohol use. Patient was recently seen at [facility] from 08/11-08/15. Patient is admittedly homeless. He has previous psychiatric diagnoses of bipolar 1 disorder, antisocial personality disorder, multiple personality disorder, schizophrenia, and depression. MD complaint: suicidal ideation and feels depressed Patient was last seen at the [facility] from 08-11 to 08-15. He went to [facility] and evidently that did not go well as the patient states he told them to off and walked out. Patient states that if he were to leave now he would find a rope and hang himself. Patient states he wants help and needs to get away from the drug traffickers around here. Patient tested positive for meth, thc, and opiates. Patient states that he is a he but in reality it is a she per the skin assessment witnessed by two nurses. The patient,Donny Rios JR,36 y/o, was given written information regarding hospital policies, unit procedures and contact persons. Patient's smoking status: current every day smoker. Vital Signs - 8 hr 08/23/21 23:28 08/24/21 02:56 Temperature 97.8 F 98.3 F Pulse Rate 91 85 Respiratory Rate 18 18 Blood Pressure 124/78 107/77 Pulse Oximetry 97 99
[2021-08-24 06:00] VITALS: RESP 16
[2021-08-24] MEDS: gabapentin 300 mg Capsule 900 MG PO ×2 (07:48→21:35)
[2021-08-24] MEDS: OLANZapine 5 mg ODT PO (07:48)
--- NOTE | 2021-08-24 07:49 | PC.NURSE ---
PRN ZYPREXA ZYDIS 5 MG GIVEN PO PER PT C/O AGITATION. PT YELLING, CURSING AT DESK, TARGETING THIS NURSE, DEROGATORY LANGUAGE. SAID I NEED ATIVAN NOT THIS SHIT
[2021-08-24] MEDS: nicotine 2 mg Gum BUCCAL ×3 (08:15→17:50)
--- NOTE | 2021-08-24 08:55 | PC.NURSE ---
BEHAVIORS PT IS PARANOID STATING THAT OTHER PATIENTS ARE CALLING HIM A FEMALE. PT STATES I'M GOING TO CUT ONE OF THESE BITCHES. PT WAS MOVED TO 125-1 PER HIS REQUEST. WITHIN 15 MINUTES PT STARTED STATING, I'M STILL GOING TO CUT THESE BITCHES, DON'T THINK I WON'T. POT VERBALLY REDIRECTED AND WAS GIVEN A ZYDIS ORDERED BY THE MED NURSE. PT CONTINUES TO BE UPSET AND DEMANDING TO LEAVE. SECURITY TO UNIT AND PT DID CALM. WILL CONTINUES TO MONITOR CLOSELY.
[2021-08-24 14:00] VITALS: BP 107/77; PULSE 85; RESP 16; TEMP 36.8; O2SAT 99
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
--- NOTE | 2021-08-24 17:55 | PC.NURSE ---
scheduled 1500 Gabapentin held d/t level of sedation, pt unable to safely swallow medications
[2021-08-24 21:00] VITALS: RESP 16
[2021-08-24] MEDS: quetiapine 100 mg Tablet 200 MG PO (21:35)
--- NOTE | 2021-08-24 22:44 | PC.NURSE ---
Pt given HS meds at this time due to pt being asleep at scheduled 1999. Due to expected admissions, and the need for pt to have a private room, pt was also moved to room 124 at this time after EVS finished cleaning said room. Pt voiced very loudly that moving to a different room was not to his/her liking and at first refused his/her medications. Pt slammed the doors to his/her bathroom and room. Pt cursing staff, calling the BOOKSTORE MANAGER a bitch . When pt asked how much his/her Seroquel was, pt was told 200mg, pt threw one pill on the floor and stated i ain't taking that much f*^#ing medicine . i just want to be left the f*^k alone
[2021-08-25 06:00] VITALS: RESP 18
[2021-08-25] MEDS: cyclobenzaprine 10 mg Tablet PO (09:39)
[2021-08-25] MEDS: gabapentin 300 mg Capsule 900 MG PO (09:40)
[2021-08-25] MEDS: nicotine 2 mg Gum BUCCAL ×2 (09:45→10:39)
--- NOTE | 2021-08-25 09:46 | PC.NURSE ---
PRN FLEXERIL 10 MG GIVEN PO PER PT C/O SPASMS. WILL CONT TO MONITOR
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
[2021-08-25 14:01] VITALS: RESP 18
--- NOTE | 2021-08-25 16:00 | PC.NURSE ---
On discharge patient was given meds to beds and threw them in the trash. Verbal and written education was given to patient on need for medication. Medication was placed in [facility] Pyxis and will be destroyed after 30 days.
== END 2021-08-25 15:01 | disposition home or self-care (01) | DRG 885 ==
LOC: ER 08-24 01:46 → NP 08-24 02:33
PROVIDERS: Admitting Provider Psychiatry & Neurology Psychiatry; Emergency Provider Physician Assistant; Visit Provider Psychiatry & Neurology Psychiatry
DX: F31.9 Bipolar disorder, unspecified (principal); R45.851 Suicidal ideations; Z86.59 Personal history of other mental and behavioral disorders; F60.89 Other specific personality disorders; F43.10 Post-traumatic stress disorder, unspecified; F17.210 Nicotine dependence, cigarettes, uncomplicated; Z59.00 Homelessness unspecified; Z62.810 Personal history of physical and sexual abuse in childhood
CPT/HCPCS: 80053; 80306; 80307; 85025; 97165; 99285

== ENCOUNTER 2021-08-25 22:22 | Inpatient (IN) | payer SELFPAY ==
--- NOTE | 2021-08-25 22:23 | ECG_ITS ---
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 Measurements Intervals [place] Rate: 70 P: 47 DC: 127 QRS: 53 QRSD: 105 T: 51 QT: 409 QTc: 442 Interpretive Statements SINUS RHYTHM No previous ECG available for comparison Electronically Signed On 08-26-2021 22:28:07 CDT by Shantel Wood M.D. [id number]
[2021-08-25 22:25] VITALS: BMI 25.8
[2021-08-25 22:28] VITALS: BP 122/80; PULSE 78; RESP 16; TEMP 36.8; O2SAT 93
--- NOTE | 2021-08-25 22:29 | ED.C_ITS ---
Documented by User: Elzbieta Vernon MD 08/25/21 23:35 HPI - Psych General: Chief Complaint: Psychiatric Symptoms Stated Complaint: SI, Overdose Time Seen by Provider: 08/25/21 22:22 Source: patient and EMS Mode of arrival: EMS Limitations: no limitations History of Present Illness: 36-year-old male who is recently admitted here to the psych [facility] was discharged yesterday. He states he had nowhere to go he is homeless and is having suicidal thoughts. He took 3 handfuls of gabapentin in attempt to kill himself. He states that he has nothing to live for. He denies any worsening improving factors. He has had no vomiting or diarrhea. Associated symptoms: Reports depression and suicidal ideation Review of Systems Const: Denies: fever(s), chills, body aches or change in appetite Eyes: Denies: blurry vision or eye discomfort ENMT: Denies: throat pain or dental pain Card: Denies: chest pain Resp: Denies: dyspnea GI: Denies: abdominal pain, nausea, vomiting or diarrhea : Denies: dysuria Musc: Denies: neck pain or back pain Skin/Breast: Denies: rash Neuro: Denies: headache(s) Psych: Reports: depression and suicidal ideation Darin/Lymph: Denies: easy bruising All/Imm: Denies: urticaria PFSH ED PFSH: Medical History Depression Schizophrenia Social History Smoking and tobacco status: current every day smoker Alcohol intake: unknown Physical Exam Const: COMMON NORMALS: patient oriented x3 and healthy appearing HENMT: COMMON NORMALS: normocephalic and atraumatic HEAD & SCALP: normocephalic and atraumatic Eye: COMMON NORMALS: Equal, round and reactive pupils present and EOMs intact bilaterally PUPIL: Yes Equal, round and reactive pupils present Neck/C-Spine: COMMON NORMALS: full ROM and supple Chest: COMMONS NORMALS: normal inspection of the chest and normal palpation of entire chest wall Resp: COMMON NORMALS: normal respiratory effort, No retractions, No use of accessory muscles and clear to auscultation bilaterally AUSCULTATION: clear to auscultation bilaterally Cardio: COMMON NORMALS: regular rate, regular rhythm and No murmurs present (Cardio) RATE: regular rate RHYTHM: regular rhythm GI: COMMON NORMALS: Normal to inspection, nondistended, normoactive bowel sounds present, Soft to palpation, non-tender and no masses PALPATION: Yes Soft to palpation Extremity: COMMON NORMALS: normal to inspection and full ROM Neuro: COMMON NORMALS: patient oriented x3, moves all extremities and no focal motor deficits Psych: COMMON NORMALS: mental status grossly normal and cooperative MOOD & AFFECT: Yes depressed mood THOUGHT CONTENT: Yes Suicidality present Skin: COMMON NORMALS: no rashes or lesions noted and no wounds GENERAL SKIN EXAM: no rashes or lesions noted Course Vital Signs: Vital signs: Vital Signs Temperature 98.3 F 08/25/21 22:28 Pulse Rate 68 08/26/21 12:37 Respiratory Rate 17 08/26/21 12:37 Blood Pressure 114/71 08/26/21 12:37 Pulse Oximetry 98 08/26/21 12:37 MDM - Psych Lab Data : 08/25/21 22:55 08/25/21 22:55 Laboratory Results WBC 9.2 10^3/uL (4.0-10.0) 08/25/21 22:55 RBC 4.55 10^6/uL (4.1-5.3) 08/25/21 22:55 Hgb 13.5 g/dL (11.7-16.6) 08/25/21 22:55 Hct 39.8 % (42.0-52.0) L 08/25/21 22:55 MCV 87.5 fl (80-94) 08/25/21 22:55 MCH 29.7 pg (28.0-34.0) 08/25/21 22:55 MCHC 33.9 g/dL (30.0-36.0) 08/25/21 22:55 RDW 13.6 % (12.1-15.1) 08/25/21 22:55 Plt Count 263 10^3/cmm (130-400) 08/25/21 22:55 MPV 10.4 fL (7.4-10.4) 08/25/21 22:55 Neut % (Auto) 54.5 % 08/25/21 22:55 Lymph % (Auto) 36.3 % 08/25/21 22:55 [place] % (Auto) 6.2 % 08/25/21 22:55 Eos % (Auto) 1.8 % 08/25/21 22:55 Baso % (Auto) 1.0 % 08/25/21 22:55 Neut # (Auto) 5.00 10^3/uL (1.8-7.7) 08/25/21 22:55 Lymph # (Auto) 3.3 10^3/uL (0.8-4.8) 08/25/21 22:55 [place] # (Auto) 0.6 10^3/uL (0.2-0.9) 08/25/21 22:55 Eos # (Auto) 0.2 10^3/uL (0.0-0.8) 08/25/21 22:55 Baso # (Auto) 0.1 10^3/uL (0.0-0.1) 08/25/21 22:55 Nucleated RBC % (auto) 0 % 08/25/21 22:55 Nucleated RBCs # 0.0 /100WBC 08/25/21 22:55 Sodium 137 mmol/L (136-145) 08/25/21 22:55 Potassium 4.0 mmol/L (3.5-5.1) 08/25/21 22:55 Chloride 102 mmol/L (98-107) 08/25/21 22:55 Carbon Dioxide 22 mmol/L (22-29) 08/25/21 22:55 Anion Gap 17.0 (5-19) 08/25/21 22:55 BUN 20 mg/dL (6-20) 08/25/21 22:55 Creatinine 0.7 mg/dL (0.7-1.2) 08/25/21 22:55 GFR Calculation 126.9 mL/min (90-130) 08/25/21 22:55 Glucose 91 mg/dL (65-115) 08/25/21 22:55 Calculated Osmolality 286 mOsm/kg (285-295) 08/25/21 22:55 Calcium 9.2 mg/dL (8.5-10.5) 08/25/21 22:55 Total Bilirubin 0.2 mg/dL (0.15-1.2) 08/25/21 22:55 AST 14 U/L (0-40) 08/25/21 22:55 ALT 12 U/L (0-41) 08/25/21 22:55 Alkaline Phosphatase 88 IU/L (40-130) 08/25/21 22:55 Total Protein 7.5 g/dL (6.6-8.7) 08/25/21 22:55 Albumin 4.3 g/dL (3.5-5.2) 08/25/21 22:55 Globulin 3.2 g/dL (1.3-4.6) 08/25/21 22:55 Salicylates < 0.3 mg/dL (3-10) L 08/25/21 22:55 Urine Opiates Screen Negative ng/mL (Negative) 08/25/21 22:55 Acetaminophen < 5.0 ug/mL (10-30) L 08/25/21 22:55 Ur Barbiturates Screen Negative ng/mL (Negative) 08/25/21 22:55 Ur Phencyclidine Scrn Negative ng/mL (Negative) 08/25/21 22:55 Ur Amphetamines Screen Positive ng/mL (Negative) H 08/25/21 22:55 U Benzodiazepines Scrn Negative ng/mL (Negative) 08/25/21 22:55 Urine Cocaine Screen Negative ng/mL (Negative) 08/25/21 22:55 U Marijuana (THC) Screen Positive ng/mL (Negative) H 08/25/21 22:55 Ethyl Alcohol < 10 mg/dL (0-10) 08/25/21 22:55 EKG Data EKG 1: I personally reviewed and interpreted this EKG as follows: EKG interpretation date: 08/25/21 EKG interpretation time: 23:30 Interpretation: nsr hr [address] or t wave abnormalities qrs 105qtc 430 Discharge Plan Discharge Patient Disposition: Admitted As Inpatient Admit Provider: Shemar Blount Clinical Impression: Suicidal ideation, Schizophrenia, Bipolar 1 disorder, History of antisocial personality disorder Condition: Stable Coding Level of Care Code ED E Commerce Manager for Chg Fwd Exam Comprehensive Documented by User: Jhonny Priest DO 08/26/21 13:55 HPI - Psych General: Chief Complaint: Psychiatric Symptoms Stated Complaint: SI, Overdose Time Seen by Provider: 08/25/21 22:22 [facility] ED PFSH: Medical History Depression Schizophrenia Social History Smoking and tobacco status: current every day smoker Alcohol intake: unknown Course Vital Signs: Vital signs: Vital Signs Temperature 98.3 F 08/25/21 22:28 Pulse Rate 68 08/26/21 12:37 Respiratory Rate 17 08/26/21 12:37 Blood Pressure 114/71 08/26/21 12:37 Pulse Oximetry 98 08/26/21 12:37 MDM - Psych Medical Decision Making Patient suicidal with attempt of suicide by taking gabapentin overdose today. Dr. Blount came and seen the patient in the emergency room and decided he does seem to be appropriate to admit the patient. Orders written. Lab Data : 08/25/21 22:55 08/25/21 22:55 Laboratory Results WBC 9.2 10^3/uL (4.0-10.0) 08/25/21 22:55 RBC 4.55 10^6/uL (4.1-5.3) 08/25/21 22:55 Hgb 13.5 g/dL (11.7-16.6) 08/25/21 22:55 Hct 39.8 % (42.0-52.0) L 08/25/21 22:55 MCV 87.5 fl (80-94) 08/25/21 22:55 MCH 29.7 pg (28.0-34.0) 08/25/21 22:55 MCHC 33.9 g/dL (30.0-36.0) 08/25/21 22:55 RDW 13.6 % (12.1-15.1) 08/25/21 22:55 Plt Count 263 10^3/cmm (130-400) 08/25/21 22:55 MPV 10.4 fL (7.4-10.4) 08/25/21 22:55 Neut % (Auto) 54.5 % 08/25/21 22:55 Lymph % (Auto) 36.3 % 08/25/21 22:55 [place] % (Auto) 6.2 % 08/25/21 22:55 Eos % (Auto) 1.8 % 08/25/21 22:55 Baso % (Auto) 1.0 % 08/25/21 22:55 Neut # (Auto) 5.00 10^3/uL (1.8-7.7) 08/25/21 22:55 Lymph # (Auto) 3.3 10^3/uL (0.8-4.8) 08/25/21 22:55 [place] # (Auto) 0.6 10^3/uL (0.2-0.9) 08/25/21 22:55 Eos # (Auto) 0.2 10^3/uL (0.0-0.8) 08/25/21 22:55 Baso # (Auto) 0.1 10^3/uL (0.0-0.1) 08/25/21 22:55 Nucleated RBC % (auto) 0 % 08/25/21 22:55 Nucleated RBCs # 0.0 /100WBC 08/25/21 22:55 Sodium 137 mmol/L (136-145) 08/25/21 22:55 Potassium 4.0 mmol/L (3.5-5.1) 08/25/21 22:55 Chloride 102 mmol/L (98-107) 08/25/21 22:55 Carbon Dioxide 22 mmol/L (22-29) 08/25/21 22:55 Anion Gap 17.0 (5-19) 08/25/21 22:55 BUN 20 mg/dL (6-20) 08/25/21 22:55 Creatinine 0.7 mg/dL (0.7-1.2) 08/25/21 22:55 GFR Calculation 126.9 mL/min (90-130) 08/25/21 22:55 Glucose 91 mg/dL (65-115) 08/25/21 22:55 Calculated Osmolality 286 mOsm/kg (285-295) 08/25/21 22:55 Calcium 9.2 mg/dL (8.5-10.5) 08/25/21 22:55 Total Bilirubin 0.2 mg/dL (0.15-1.2) 08/25/21 22:55 AST 14 U/L (0-40) 08/25/21 22:55 ALT 12 U/L (0-41) 08/25/21 22:55 Alkaline Phosphatase 88 IU/L (40-130) 08/25/21 22:55 Total Protein 7.5 g/dL (6.6-8.7) 08/25/21 22:55 Albumin 4.3 g/dL (3.5-5.2) 08/25/21 22:55 Globulin 3.2 g/dL (1.3-4.6) 08/25/21 22:55 Salicylates < 0.3 mg/dL (3-10) L 08/25/21 22:55 Urine Opiates Screen Negative ng/mL (Negative) 08/25/21 22:55 Acetaminophen < 5.0 ug/mL (10-30) L 08/25/21 22:55 Ur Barbiturates Screen Negative ng/mL (Negative) 08/25/21 22:55 Ur Phencyclidine Scrn Negative ng/mL (Negative) 08/25/21 22:55 Ur Amphetamines Screen Positive ng/mL (Negative) H 08/25/21 22:55 U Benzodiazepines Scrn Negative ng/mL (Negative) 08/25/21 22:55 Urine Cocaine Screen Negative ng/mL (Negative) 08/25/21 22:55 U Marijuana (THC) Screen Positive ng/mL (Negative) H 08/25/21 22:55 Ethyl Alcohol < 10 mg/dL (0-10) 08/25/21 22:55 Discharge Plan Discharge Patient Disposition: Admitted As Inpatient Admit Provider: Shemar Blount Clinical Impression: Suicidal ideation, Schizophrenia, Bipolar 1 disorder, History of antisocial personality disorder Condition: Stable Coding Level of Care Code ED E Commerce Manager for Deep Fwd Exam Comprehensive
[2021-08-25] MEDS: ondansetron 2 mg/ML SDV 2 mL 4 MG IM (22:50)
[2021-08-25 23:04] LABS: Basophils # 0.1 10^3/uL (0.0-0.1); Eosinophils # 0.2 10^3/uL (0.0-0.8); Eosinophils % 1.8 %; Hematocrit 39.8 % (42.0-52.0); Hemoglobin 13.5 g/dL (11.7-16.6); Lymphocytes # 3.3 10^3/uL (0.8-4.8); Lymphocytes % 36.3 %; Mean Corpuscular HGB Conc 33.9 g/dL (30.0-36.0); Mean Corpuscular Hemoglobin 29.7 pg (28.0-34.0); Mean Corpuscular Volume 87.5 fl (80-94); Mean Platelet Volume 10.4 fL (7.4-10.4); Monocytes # 0.6 10^3/uL (0.2-0.9); Monocytes % 6.2 %; Neutrophils % 54.5 %; Nucleated Red Blood Cells % 0 %; Platelet Count 263 10^3/cmm (130-400); Red Blood Count 4.55 10^6/uL (4.1-5.3); Red Cell Distribution Width 13.6 % (12.1-15.1); White Blood Count 9.2 10^3/uL (4.0-10.0)
[2021-08-25 23:17] LABS: Amphetamines Screen Urine Positive (Negative); Barbiturates Screen Urine Negative (Negative); Benzodiazepines Screen Urine Negative (Negative); Cocaine Screen Urine Negative (Negative); Opiate Screen Urine Negative (Negative); PCP Screen Urine Negative (Negative); THC Screen Urine Positive (Negative)
[2021-08-25 23:21] LABS: Alanine Aminotransferase 12 U/L (0-41); Albumin Level 4.3 g/dL (3.5-5.2); Alkaline Phosphatase 88 IU/L (40-130); Aspartate Amino Transferase 14 U/L (0-40); Blood Urea Nitrogen 20 mg/dL (6-20); Calcium 9.2 mg/dL (8.5-10.5); Carbon Dioxide 22 mmol/L (22-29); Chloride 102 mmol/L (98-107); Globulin 3.2 g/dL (1.3-4.6); Glomerular Filtration Rate 126.9 mL/min (90-130); Glucose 91 mg/dL (65-115); Osmolality Calculated 286 mOsm/kg (285-295); Sodium 137 mmol/L (136-145); Total Bilirubin 0.2 mg/dL (0.15-1.2); Total Protein 7.5 g/dL (6.6-8.7)
[2021-08-25 23:24] LABS: Acetaminophen < 5.0 ug/mL (10-30); Alcohol Level < 10 mg/dL (0-10); Salicylate < 0.3 mg/dL (3-10)
[2021-08-26] VITALS (7 sets, daily range): BP systolic 106–147; BP diastolic 67–97; PULSE 67–81; RESP 12–17; TEMP 36.9; O2SAT 96–99
[2021-08-26] MEDS: ziprasidone 20 mg/mL SDV IM (12:32)
[2021-08-26] MEDS: diphenhydrAMINE 50 mg/mL SDV 1mL IVP (12:32)
[2021-08-26] MEDS: LORazepam 2 mg/mL INJ 1 mL IVP (12:32)
--- NOTE | 2021-08-26 16:09 | PC.ADMIT ---
[facility] Admission Note: The patient,Donny Rios JR,36 y/o, was given written information regarding hospital policies, unit procedures and contact persons. Patient's smoking status: current every day smoker. Vital Signs - 8 hr 08/26/21 12:37 08/26/21 14:02 Temperature 98.4 F Pulse Rate 68 79 Respiratory Rate 17 15 Blood Pressure 114/71 147/97 Pulse Oximetry 98 96 ADMITTED FROM [facility] ER AT 1255 WITH SECURITY AND ER STAFF. PT UNCOOPERATIVE WITH ASSESSMENTS. PT DID RECEIVE GEODON, ATIVAN AND BENADRYL IM. SKIN ASSESSMENT COMPLETED WITH THIS RN AND CONTENT MANAGER. PT HAS NEEDLE STICK TO LEFT ARM. PT WAS JUST DISCHARGED YESTERDAY. ER NURSE REPORTS PT WAS POSITIVE FOR METH AND THC. ER REPORTS PT HAD A SUICIDE ATTEMPT THIS AM BY TAKING THREE HANDFULS OF GABAPENTIN. PT IN BED RESTING CURRENTLY. [address] ENDING 09/01/21 AT 1255.
[2021-08-26] MEDS: trazodone 50 mg Tablet PO (21:32)
[2021-08-27] MEDS: hyDROXYzine 25 mg Capsule 50 MG PO (03:25)
[2021-08-27 06:00] VITALS: BP 111/73; PULSE 61; RESP 17; TEMP 36.8; O2SAT 96
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
[2021-08-27] MEDS: ibuprofen 600 mg Tablet PO (08:41)
[2021-08-27] MEDS: gabapentin 300 mg Capsule 900 MG PO (08:41)
[2021-08-27] MEDS: cyclobenzaprine 10 mg Tablet PO (08:41)
[2021-08-27] MEDS: nicotine 2 mg Gum BUCCAL ×2 (08:42→19:15)
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
[2021-08-27 14:00] VITALS: BP 111/74; PULSE 64; RESP 17; TEMP 36.6; O2SAT 94
[2021-08-27] MEDS: OLANZapine 5 mg ODT PO (14:09)
[2021-08-27 20:08] VITALS: BP 96/58; PULSE 74; RESP 16; TEMP 36.8; O2SAT 100
[2021-08-27] MEDS: quetiapine 100 mg Tablet 200 MG PO (21:06)
[2021-08-27] MEDS: trazodone 50 mg Tablet PO (21:06)
[2021-08-28 06:00] VITALS: BP 101/68; PULSE 53; RESP 15; TEMP 36.6; O2SAT 97
[2021-08-28] MEDS: ibuprofen 600 mg Tablet PO (10:38)
[2021-08-28] MEDS: cyclobenzaprine 10 mg Tablet PO (10:39)
[2021-08-28] MEDS: nicotine 2 mg Gum BUCCAL (10:39)
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
[2021-08-28 13:54] VITALS: BP 101/68; PULSE 53; RESP 15; TEMP 36.6; O2SAT 97
== END 2021-08-28 14:15 | disposition home or self-care (01) | DRG 914 ==
LOC: ER 08-26 11:57 → NP 08-26 12:31
PROVIDERS: Emergency Medicine; Admitting Provider Psychiatry & Neurology Psychiatry; Emergency Provider Family Medicine; Visit Provider Psychiatry & Neurology Psychiatry
DX: T14.91XA Suicide attempt, initial encounter (principal); T42.6X2A Poisoning by other antiepileptic and sedative-hypnotic drugs, intentional self-harm, initial encounter; F31.9 Bipolar disorder, unspecified; F60.2 Antisocial personality disorder; F60.89 Other specific personality disorders; F43.10 Post-traumatic stress disorder, unspecified; F20.9 Schizophrenia, unspecified; F17.200 Nicotine dependence, unspecified, uncomplicated; Z59.00 Homelessness unspecified; Z62.811 Personal history of psychological abuse in childhood; Z81.8 Family history of other mental and behavioral disorders; Z62.810 Personal history of physical and sexual abuse in childhood
CPT/HCPCS: 80053; 80306; 80307; 85025; 93005; 96372; 96374; 97165; 99285; J1200; J2060; J2405; J3486